=== PATIENT | male | born 1970 | race Caucasian/White ===

== ENCOUNTER 2019-09-03 13:05 | Emergency (ER) | payer OTHER ==
[~2019-09-03] VITALS: Ht 182.8 cm; Wt 104.5 kg
[2019-09-03 13:25] LABS: BASOPHILS % (AUTO) 1 % (0-10); EOSINOPHILS # (AUTO) 0.1 10^3/uL (0.0-0.3); EOSINOPHILS % (AUTO) 2 % (0-10); HEMATOCRIT 44 % (40-54); HEMOGLOBIN 15.2 G/DL (13.3-17.7); LYMPHOCYTES # (AUTO) 2.4 X 10^3 (1.0-4.0); LYMPHOCYTES % (AUTO) 43 % (12-44); MEAN CORPUSCULAR HEMOGLOBIN 31 PG (25-34); MEAN CORPUSCULAR HGB CONC 34 G/DL (32-36); MEAN CORPUSCULAR VOLUME 90 FL (80-99); MEAN PLATELET VOLUME 10.9 FL (7.4-10.4); MONOCYTES # (AUTO) 0.4 X 10^3 (0.0-1.0); MONOCYTES % (AUTO) 7 % (0-12); NEUTROPHILS # (AUTO) 2.7 X 10^3 (1.8-7.8); NEUTROPHILS % (AUTO) 48 % (42-75); PLATELET COUNT 243 10^3/uL (130-400); RED CELL DISTRIBUTION WIDTH 12.8 % (10.0-14.5); WHITE BLOOD COUNT 5.7 10^3/uL (4.3-11.0)
[2019-09-03] MEDS ORDERED: ASPIRIN 81 MG CHEW (CHILDREN'S ASA) PO ONE (13:30)
--- NOTE | 2019-09-03 13:40 | Diagnostic Imaging Report ---
EXAMINATION: Portable erect AP chest at 01:33 p.m. INDICATION: Chest pain. COMPARISON: There are no prior studies available for comparison. FINDINGS: Heart size is within normal limits. The lungs are clear. There is no evidence for failure, pneumonia or for pleural effusion. The mediastinum is not widened. The osseous structures are intact. IMPRESSION: There is no evidence for active disease. Dictated by: Dictated on workstation # [id number]
[2019-09-03 13:45] LABS: INR 1.1 (0.8-1.4); PROTHROMBIN TIME PATIENT 14.3 SEC (12.2-14.7)
--- NOTE | 2019-09-03 13:45 | ED Chest Pain ---
General Chief Complaint: Chest Pain Stated Complaint: CHEST TIGHTNESS Nursing Triage Note: AMB TO ED WITH WITH C/O INTERMITTEN CHEST TIGHTNESS FOR 3 WEEKS. WAS TOLD BY HIS BROTHER WHO IS A DR THAT HE NEEDS AT EKG. Nursing Sepsis Screen: No Definite Risk Source: patient Exam Limitations: no limitations History of Present Illness Date Seen by Provider: Sep 03, 2019 Time Seen by Provider: 13:10 Initial Comments PT ARRIVES VIA POV FROM HOME WITH C/O CHEST TIGHTNESS OFF AND ON FOR THE LAST 3 WEEKS NO PAIN OR TIGHTNESS NOW NOTHING WORSENS OR IMPROVES PAIN, OR BRINGS ON PAIN NO RADIATION OF PAIN NO SHORTNESS OF BREATH NO SWEATS NO DIZZINESS OR SYNCOPE NO PALPITATIONS NO SWELLING IN LEGS/ FEET OR PAIN IN CALVES NO FEVER NO COUGH OR URI SYMPTOMS OR RECENT ILLNESS NO NAUSEA/VOMITING NO HISTORY OF SIMILAR OR ANY CARDIAC PROBLEMS HAS NOT SOUGHT CARE UNTIL TODAY SYMPTOMS NO DIFFERENT TODAY HAS NOT TAKEN ANYTHING FOR SYMPTOMS STATES HE CALLED HIS BROTHER TODAY, WHO IS A DR IN [place] AND HE TOLD HIM TO COME HERE. P PCP: NONE, BUT 'S FAMILY DR IS DR. YAÑEZ IN [facility], AND REPORTS THAT HE CAN GO THERE IF HE NEEDS TO Allergies and Home Medications Allergies Coded Allergies: No Known Drug Allergies (Unverified , 09/03/19) Home Medications No Active Prescriptions or Reported Meds Patient Home Medication List Home Medication List Reviewed: Yes Review of Systems Review of Systems Constitutional: no symptoms reported; No chills, No diaphoresis, No dizziness, No fever EENTM: No Symptoms Reported Respiratory: No Symptoms Reported; Denies Cough, Denies Orthopnea, Denies Shortness of Air, Denies SOA With Exertion, Denies Wheezing Cardiovascular: See HPI, Chest Pain; Denies Edema, Denies Irregular Heart Rate, Denies Lightheadedness, Denies Palpitations, Denies Syncope Gastrointestinal: No Symptoms Reported; Denies Abdominal Pain, Denies Nausea, Denies Vomiting Genitourinary: No Symptoms Reported Musculoskeletal: no symptoms reported; No back pain Skin: no symptoms reported Psychiatric/Neurological: No Symptoms Reported; Denies Headache, Denies Numbness, Denies Paresthesia, Denies Tingling, Denies Weakness Endocrine: No Symptoms Reported Hematologic/Lymphatic: No Symptoms Reported Past Igssfct-[id number]-Plyjkc Hx Past Med/Social Hx: Reviewed and Corrections made Patient Social History Alcohol Use: Occasionally Uses Recreational Drug Use: No Smoking Status: Never a Smoker Recent Foreign Travel: No Contact w/Someone Who Travel: No Recent Infectious Disease Expo: No Past Medical History Surgeries: Yes (LEFT SHOULDER ; RIGHT ANKLE FX/ORIF; LEFT FOOT FRACTURE) Orthopedic Respiratory: No Cardiac: No Neurological: No Reproductive Disorders: No Genitourinary: No Gastrointestinal: No Musculoskeletal: Yes (LEFT SHOULDER SURGERY; RIGHT ANKLE FX/ORIF; LEFT FOOT FRACTURE) Fractures Endocrine: No HEENT: No Cancer: No Psychosocial: No Integumentary: No Blood Disorders: No Physical Exam Vital Signs Vital Signs - First Documented 09/03/19 13:08 Temp 36.6 Pulse 52 Resp 18 B/P (MAP) 146/79 (101) Pulse Ox 99 O2 Delivery Room Air Capillary Refill : Less Than 3 Seconds Height, Weight, BMI Height: '" Weight: lbs. oz. kg; 31.00 BMI Method: General Appearance: No Apparent Distress, WD/WN Neck: Full Range of Motion, Normal Inspection, Non Tender, Supple; No Carotid Bruit, No JVD Respiratory: Chest Non Tender, Normal Breath Sounds, No Accessory Muscle Use, No Respiratory Distress Cardiovascular: Regular Rate, Rhythm, No Edema, No JVD, No Murmur, Normal Peripheral Pulses Gastrointestinal: Normal Bowel Sounds, No Organomegaly, No Pulsatile Mass, Non Tender, Soft Extremity: Normal Capillary Refill, Normal Inspection, Normal Range of Motion, Non Tender, No Calf Tenderness, No Pedal Edema Neurologic/Psychiatric: Alert, Oriented x3, No Motor/Sensory Deficits, Normal Mood/Affect, stockroom helper II-XII Norm as Tested Skin: Normal Color, Warm/Dry; No Rash Progress/Results/Core Measures Results/Orders Lab Results Laboratory Tests Test 09/03/19 13:17 09/03/19 16:02 Range/Units White Blood Count 5.7 4.3-11.0 10^3/uL Red Blood Count 4.93 4.35-5.85 10^6/uL Hemoglobin 15.2 13.3-17.7 G/DL Hematocrit 44 40-54 % Mean Corpuscular Volume 90 80-99 FL Mean Corpuscular Hemoglobin 31 25-34 PG Mean Corpuscular Hemoglobin Concent 34 32-36 G/DL Red Cell Distribution Width 12.8 10.0-14.5 % Platelet Count 243 130-400 10^3/uL Mean Platelet Volume 10.9 H 7.4-10.4 FL Neutrophils (%) (Auto) 48 42-75 % Lymphocytes (%) (Auto) 43 12-44 % Monocytes (%) (Auto) 7 0-12 % Eosinophils (%) (Auto) 2 0-10 % Basophils (%) (Auto) 1 0-10 % Neutrophils # (Auto) 2.7 1.8-7.8 X 10^3 Lymphocytes # (Auto) 2.4 1.0-4.0 X 10^3 Monocytes # (Auto) 0.4 0.0-1.0 X 10^3 Eosinophils # (Auto) 0.1 0.0-0.3 10^3/uL Basophils # (Auto) 0.0 0.0-0.1 10^3/uL Prothrombin Time 14.3 12.2-14.7 SEC INR Comment 1.1 0.8-1.4 Activated Partial Thromboplast Time 31 24-35 SEC Sodium Level 140 135-145 MMOL/L Potassium Level 4.1 3.6-5.0 MMOL/L Chloride Level 107 98-107 MMOL/L Carbon Dioxide Level 23 21-32 MMOL/L Anion Gap 10 5-14 MMOL/L Blood Urea Nitrogen 15 7-18 MG/DL Creatinine 1.22 0.60-1.30 MG/DL Estimat Glomerular Filtration Rate > 60 BUN/Creatinine Ratio 12 Glucose Level 102 70-105 MG/DL Calcium Level 9.2 8.5-10.1 MG/DL Corrected Calcium 9.0 8.5-10.1 MG/DL Magnesium Level 1.9 1.6-2.4 MG/DL Total Bilirubin 0.3 0.1-1.0 MG/DL Aspartate Amino Transf (AST/SGOT) 15 5-34 U/L Alanine Aminotransferase (ALT/SGPT) 26 0-55 U/L Alkaline Phosphatase 86 40-136 U/L Total Creatine Kinase 70 30-200 U/L Creatine Kinase MB 0.8 <6.6 NG/ML Myoglobin 32.6 10.0-92.0 NG/ML Troponin I < 0.028 < 0.028 <0.028 NG/ML B-Type Natriuretic Peptide < 10.0 <100.0 PG/ML Total Protein 6.7 6.4-8.2 GM/DL Albumin 4.2 3.2-4.5 GM/DL Amylase Level 87 25-125 U/L Lipase 33 8-78 U/L My Orders Orders - ROB MATTHEW DO Cbc With Automated Diff (09/03/19 13:11) Magnesium (09/03/19 13:11) Chest 1 View, Ap/Pa Only (09/03/19 13:11) Ekg Tracing (09/03/19 13:11) Comprehensive Metabolic Panel (09/03/19 13:11) Myoglobin Serum (09/03/19 13:11) Protime With Inr (09/03/19 13:11) Partial Thromboplastin Time (09/03/19 13:11) O2 (09/03/19 13:11) Monitor-Rhythm Ecg Trace Only (09/03/19 13:11) Ed Iv/Invasive Line Start (09/03/19 13:11) Creatine Kinase (09/03/19 13:11) Creatine Kinase Mb (09/03/19 13:11) Lipase (09/03/19 13:11) Amylase (09/03/19 13:11) BNP (09/03/19 13:11) Troponin I (09/03/19 13:11) Aspirin Chewable Tablet (Baby Aspirin Ch (09/03/19 13:30) Ekg Tracing (09/03/19 16:00) Troponin I (09/03/19 16:00) Medications Given in ED Current Medications Medications Dose Ordered Sig/Cici Route Start Time Stop Time Status Last Admin Dose Admin Aspirin 324 mg ONCE ONCE PO 09/03/19 13:30 09/03/19 13:31 DC 09/03/19 13:23 324 MG Vital Signs/I&O 09/03/19 13:08 Temp 36.6 Pulse 52 Resp 18 B/P (MAP) 146/79 (101) Pulse Ox 99 O2 Delivery Room Air Blood Pressure Mean: 101 Progress Progress Note : Progress Note NO SYMPTOMS OF ANY KIND DURING ER STAY REPEAT TROPONIN AND EKG ARE UNCHANGED PT STATES HIS HEART RATE HAS BEEN SLOW ALL OF HIS LIFE, SINCE AT LEAST HIGH SCHOOL Initial ECG Impression Date: Sep 03, 2019 Initial ECG Impression Time: 13:16 Initial ECG Rate: 56 Initial ECG Rhythm: Normal Sinus Initial ECG Comparisson: No Previous ECG Available EKG : EKG Time: 16:35 Rate: 42 Rhythm: S.Kg Diagnostic Imaging Comments CXR--NO ACUTE PROCESS, PER RADIOLOGIST REPORT AT 1407 Reviewed: Reviewed by Me Departure Communication (Admissions) 1418/1420--PAGED / SPOKE WITH DR. SANDY, DIESEL ENGINE PIPE FITTER ECONOMIC HISTORY TEACHER. HE ADVISES TO DO A 3-4 HOUR RULE OUT AND IF NEGATIVE AND PT REMAINS PAIN-FREE, HE WILL SEE HIM IN THE OFFICE TOMORROW AND ARRANGE FOR OUTPATIENT STRESS TEST. IF ANYTHING CHANGES, WILL ADMIT PT TO HOSPITALIST AND HE WILL SEE PT IN CONSULT. Impression Primary Impression: Chest pain Disposition: HOME, SELF-CARE Condition: Stable Departure-Patient Inst. Referrals: TANO YAÑEZ MD (PCP/Family) Primary Care Physician SHABANA SANDY MD FACP FACC CCDS Patient Instructions: Chest Pain (DC), Heart Healthy Diet Add. Discharge Instructions: HOME, REST CALL DR. SADNY'S OFFICE IN THE MORNING FOR FOLLOW UP APPOINTMENT TOMORROW. RETURN TO ER IF SYMPTOMS RETURN/WORSEN All discharge instructions reviewed with patient and/or family. Voiced understanding. Scripts No Active Prescriptions or Reported Meds ROB MATTHEW DO Sep 03, 2019 13:45
[2019-09-03 13:49] LABS: ALANINE AMINOTRANSFERASE 26 U/L (0-55); ALBUMIN 4.2 GM/DL (3.2-4.5); ALKALINE PHOSPHATASE 86 U/L (40-136); AMYLASE 87 U/L (25-125); BILIRUBIN,TOTAL 0.3 MG/DL (0.1-1.0); BUN/CREATININE RATIO 12; CALCIUM 9.2 MG/DL (8.5-10.1); CARBON DIOXIDE 23 MMOL/L (21-32); CHLORIDE 107 MMOL/L (98-107); CREATINE KINASE 70 U/L (30-200); CREATININE SERUM 1.22 MG/DL (0.60-1.30); GFR ESTIMATED > 60; GLUCOSE 102 MG/DL (70-105); LIPASE 33 U/L (8-78); MAGNESIUM 1.9 MG/DL (1.6-2.4); POTASSIUM 4.1 MMOL/L (3.6-5.0); SODIUM 140 MMOL/L (135-145); TOTAL PROTEIN 6.7 GM/DL (6.4-8.2)
[2019-09-03 13:55] LABS: CREATINE KINASE MB 0.8 NG/ML (<6.6)
--- NOTE | 2019-09-03 14:30 | NUR ---
DR MATTHEW TO ROOM INFORMED PATIENT AND FAMILY THAT WOULD REDRAW TROPONIN IN 3 HRS.
--- NOTE | 2019-09-03 14:57 | NUR ---
TO ROOM REMOTE TO TV GIVEN INFORMED THAT 2ND TROPONIN WILL BE DRAWN AT 1600
[2019-09-03 16:47] VITALS: BP 132/77
--- OUTSIDE RECORDS SUMMARY | 2019-09-11 12:58 | XMS REPORT | Clinical Summary ---
Demographics Preferred Language Unknown Marital Status Jehovah'S Witness Affiliation Unknown Race Unknown Ethnic Group Unknown Author Author [facility] Organization [facility] Address Unknown Phone Unavailable Care Team Providers Care Safe Technician Name Role Phone PCP Unavailable Allergies Not on File Medications Not on file Active Problems Not on file Social History Date Tobacco Use Types Packs/Day Years Used Never Assessed Sex Assigned at Date Recorded Not on file Industry Job Start Date Occupation Not on file Not on file Not on file Travel End Travel History Travel Start No recent travel history available. Last Filed Vital Signs Not on file Plan of Treatment Not on file Results Not on filefrom Last 3 Months
--- OUTSIDE RECORDS SUMMARY | 2019-09-11 12:58 | XMS REPORT | Encounter Summary ---
Demographics Preferred Language Unknown Marital Status Spiritism Affiliation Unknown Race Unknown Ethnic Group Unknown Author Author [facility] Organization [facility] Address Unknown Phone Unavailable Care Team Providers Care Soft Metals Hand Engraver Name Role Phone PCP Unavailable Encounter Details Care Team Description Date Type Department Sumeet Goldberg MD [address] [facility] [place] [address] [phone] 02/19/2004 [facility] Visit [facility] Social History Date Tobacco Use Types Packs/Day Years Used Never Assessed Sex Assigned at Date Recorded Not on file Industry Job Start Date Occupation Not on file Not on file Not on file Travel End Travel History Travel Start No recent travel history available. documented as of this encounter Plan of Treatment Not on filedocumented as of this encounter Visit Diagnoses Not on filedocumented in this encounter
--- OUTSIDE RECORDS SUMMARY | 2019-09-11 12:58 | XMS REPORT | Clinical Summary ---
Author Author [facility] Organization [facility] Address Unknown Phone Unavailable Care Team Providers Care Tire Molder Name Role Phone Antony West MD PCP Source Comments Some departments are not documenting in the electronic medical record. If you d o not see the information that you expected, contact Release of Information in [facility] Information Management department at [phone] for further assistan ce in locating additional records.[facility] Allergies Not on File Medications Not on [...] Signs Not on file Plan of Treatment Health Maintenance Due Date Last Done Comments DTAP/TDAP VACCINES (1 - 1983 Tdap) HIV SCREENING 1987 PHYSICAL (COMPREHENSIVE) 1990 EXAM INFLUENZA VACCINE 02/23/2019 Results Not on filefrom Last 3 Months
== END 2019-09-03 16:47 | disposition home or self-care (01) ==
LOC: EDUNIT# 13:05 → ER 13:06
DX: R07.89 Other chest pain (principal)
CPT/HCPCS: 36415; 71045; 80053; 82150; 82550; 82553; 83690; 83735; 83874; 83880; 84484; 85025; 85610; 85730; 93005; 93041

== ENCOUNTER → 2020-09-25 | Outpatient (CLI) | payer BC ==
--- NOTE | 2020-09-25 09:39 | Diagnostic Imaging Report ---
PROCEDURE: MRI pelvis without contrast. TECHNIQUE: Multiplanar, multisequence MRI of the pelvis was performed without contrast. INDICATION: Right-sided groin and pelvis pain. COMPARISON: There are no prior studies available for comparison. FINDINGS: There is no abnormal signal arising from the osseous structures on the T1 coronal series to suggest bone edema related to a fracture. There is no sign of avascular necrosis of the femoral heads either. 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 I suspect that these subchondral cysts are indirect signs of labral tears. There is also a small amount of fluid within each hip joint. This may well be physiologic in nature. There is no distortion of the soft tissues adjacent to the greater trochanter of each femur to suggest trochanteric bursitis. The images of the lower lumbar spine failed to show any sign of a high-grade stenosis. However, the lumbar spine was not well-visualized cephalad to the superior endplate of L4. If further evaluation is desired, then a dedicated lumbar spine exam would be recommended. There is no pelvic mass or free fluid collection noted. The urinary bladder and prostate gland are grossly unremarkable. IMPRESSION: 1. There is no evidence for an acute bony abnormality and there is no sign of avascular necrosis. 2. There is degenerative disease involving both hip joints and the subchondral cyst formation in each acetabula is most likely indirect evidence of a labral tear. 3. There is no high-grade stenosis of the visualized lower lumbar spine. 4. There is no acute pelvic abnormality identified. Dictated by: Dictated on workstation # [id number]
== END ==
LOC: RAD 08:00
PROVIDERS: ATTEND Nurse Practitioner Family
DX: S39.93XA Unspecified injury of pelvis, initial encounter (principal); M16.12 Unilateral primary osteoarthritis, left hip; M16.11 Unilateral primary osteoarthritis, right hip; X58.XXXA Exposure to other specified factors, initial encounter
CPT/HCPCS: 72195